=== PATIENT | female | born 1975 | race African-American/Black ===

== ENCOUNTER 2017-12-24 17:31 | Inpatient (IN) | payer SELFPAY ==
[~2017-12-24] VITALS: Ht 175.3 cm; Wt 59.0 kg
[2017-12-24] MEDS ORDERED: SODIUM CHLORIDE 0.9% 1,000 ML IV ONE (18:15)
[2017-12-24] MEDS ORDERED: ONDANSETRON HCL 4MG/2ML VIAL IV STA (18:15)
[2017-12-24] MEDS ORDERED: KETOROLAC 30MG/ML VIAL IV STA (18:15)
[2017-12-24 19:08] LABS: BASOPHILS % 0.5 % (0.0-2.0); EOSINOPHILS % 0.1 % (0.0-5.0); HEMATOCRIT. 40.9 % (36.0-48.0); HEMOGLOBIN. 13.3 g/dL (12.0-16.0); LYMPHOCYTES % 14.3 % (20.0-50.0); MEAN CORPUSCULAR HEMOGLOBIN 31.1 pg (28.0-32.0); MEAN CORPUSCULAR VOLUME 95.9 fL (81.0-99.0); MEAN PLATELET VOLUME 8.3 fl (7.4-10.4); MONOCYTES % 9.9 % (2.0-8.0); NEUTROPHILS % 75.2 % (40.0-76.0); PLATELET 274 x1000/uL (130-400); RED BLOOD CELL COUNT 4.27 mill/uL (4.2-5.4)
[2017-12-24 19:12] LABS: CHLORIDE 98 mEq/L (98-107)
[2017-12-24] MEDS ORDERED: MORPHINE SULFATE 4 MG/ML CPJ (NOT FOR IM USE) IV ONE (21:00)
[2017-12-24 23:45] VITALS: BP 111/71
[2017-12-25] VITALS: BP 111/71
[2017-12-25 04:00] VITALS: BP 188/89
[2017-12-25] MEDS ORDERED: DEXT 5%/0.45% NACL KCL 20MEQ/L 1,000 ML IV SCH (04:15)
[2017-12-25] MEDS: MORPHINE SULFATE 4 MG/ML CPJ (NOT FOR IM USE) IV PRN ×4 (04:21→23:24)
[2017-12-25] MEDS ORDERED: ESOM20CA PO (05:43)
[2017-12-25] MEDS: PANTOPRAZOLE SODIUM 40 MG/VIAL IV SCH (09:41)
[2017-12-25 12:59] LABS: CHLORIDE 103 mEq/L (98-107)
[2017-12-25 13:05] LABS: PHOSPHORUS 3.5 mg/dL (2.5-4.9)
[2017-12-25] MEDS: DEXT 5%/0.45% NACL KCL 20MEQ/L 1,000 ML IV SCH ×2 (13:23→21:34)
[2017-12-25 13:38] LABS: HCG SCREEN NEGATIVE
[2017-12-25 15:40] LABS: HEMATOCRIT. 42.5 % (36.0-48.0); HEMOGLOBIN. 13.6 g/dL (12.0-16.0); MEAN CORPUSCULAR HEMOGLOBIN 30.9 pg (28.0-32.0); MEAN CORPUSCULAR VOLUME 96.8 fL (81.0-99.0); MEAN PLATELET VOLUME 8.8 fl (7.4-10.4); PLATELET 268 x1000/uL (130-400); RED BLOOD CELL COUNT 4.38 mill/uL (4.2-5.4); RED CELL DISTRIBUTION WIDTH 16.2 % (11.6-14.6)
[2017-12-25] MEDS: ONDANSETRON HCL 4MG/2ML VIAL IV PRN ×2 (16:25→23:24)
[2017-12-25 17:52] LABS: PLATELET ESTIMATE NORMAL
[2017-12-25] MEDS ORDERED: ACETAMINOPHEN 650MG SUPP PR PRN (18:45)
[2017-12-25 19:48] LABS: HEMATOCRIT 44.6 % (36.0-48.0); HEMOGLOBIN 14.2 g/dL (12.0-16.0)
[2017-12-25 20:00] VITALS: BP 114/73
[2017-12-25] MEDS: ENOXAPARIN 40MG/0.4ML SYR SUBCUT SCH (21:36)
[2017-12-26] VITALS: BP 136/89
[2017-12-26 04:00] VITALS: BP 132/92
[2017-12-26] MEDS: DEXT 5%/0.45% NACL KCL 20MEQ/L 1,000 ML IV SCH ×3 (05:23→23:08)
[2017-12-26] MEDS: ONDANSETRON HCL 4MG/2ML VIAL IV PRN ×3 (05:24→19:54)
[2017-12-26] MEDS: MORPHINE SULFATE 4 MG/ML CPJ (NOT FOR IM USE) IV PRN ×3 (05:24→19:55)
[2017-12-26 07:50] LABS: CHLORIDE 101 mEq/L (98-107)
[2017-12-26 08:00] VITALS: BP 120/87
[2017-12-26 08:05] LABS: AMYLASE 168 IU/L (25-115)
[2017-12-26] MEDS: PANTOPRAZOLE SODIUM 40 MG/VIAL IV SCH (08:09)
[2017-12-26 11:04] LABS: HEMATOCRIT 38.6 % (36.0-48.0); HEMOGLOBIN 12.6 g/dL (12.0-16.0); MEAN CORPUSCULAR HEMOGLOBIN 31.3 pg (28.0-32.0); MEAN CORPUSCULAR VOLUME 95.9 fL (81.0-99.0); PLATELET 225 x1000/uL (130-400); RED BLOOD CELL COUNT 4.03 mill/uL (4.2-5.4); RED CELL DISTRIBUTION WIDTH 16.1 % (11.6-14.6)
[2017-12-26 12:00] VITALS: BP 124/84
[2017-12-26 16:00] VITALS: BP 112/72
[2017-12-26 19:14] LABS: CLARITY URINE CLEAR (CLEAR); COLOR URINE ORANGE (YELLOW); KETONES URINE NEGATIVE (NEGATIVE); LEUKOCYTE ESTERASE URINE NEGATIVE (NEGATIVE); NITRITE URINE NEGATIVE (NEGATIVE); OCCULT BLOOD URINE TRACE (NEGATIVE); PH URINE 6.5 (4.5-8.0); PROTEIN URINE NEGATIVE (NEGATIVE); SPECIFIC GRAVITY URINE 1.005 (1.005-1.030); UROBILINOGEN URINE 0.2 E.U./dL (0.2-1.0)
[2017-12-26 19:37] LABS: *AMPHETAMINES SCREEN URINE NEGATIVE (NEGATIVE)
[2017-12-26 19:38] LABS: *BARBITURATES SCREEN URINE NEGATIVE (NEGATIVE); *BENZODIAZEPINES SCREEN URINE NEGATIVE (NEGATIVE); *COCAINE SCREEN URINE NEGATIVE (NEGATIVE); METHADONE URINE SCREEN NEGATIVE (NEGATIVE); PHENCYCLIDINE URINE SCREEN NEGATIVE (NEGATIVE)
[2017-12-26 19:39] LABS: CANNABINOID URINE SCREEN NEGATIVE (NEGATIVE); OPIATES URINE SCREEN PRESUMTIVE POSITIVE (NEGATIVE)
[2017-12-26 20:00] VITALS: BP 114/72
[2017-12-26] MEDS: ENOXAPARIN 40MG/0.4ML SYR SUBCUT SCH (20:04)
[2017-12-27] VITALS: BP 115/78
[2017-12-27] MEDS: ONDANSETRON HCL 4MG/2ML VIAL IV PRN ×4 (03:21→22:19)
[2017-12-27] MEDS: MORPHINE SULFATE 4 MG/ML CPJ (NOT FOR IM USE) IV PRN ×4 (03:35→22:24)
[2017-12-27 04:00] VITALS: BP 113/74
[2017-12-27 07:04] LABS: HEMATOCRIT 33.6 % (36.0-48.0); HEMOGLOBIN 11.2 g/dL (12.0-16.0); MEAN CORPUSCULAR HEMOGLOBIN 31.5 pg (28.0-32.0); MEAN CORPUSCULAR VOLUME 94.2 fL (81.0-99.0); PLATELET 205 x1000/uL (130-400); RED BLOOD CELL COUNT 3.56 mill/uL (4.2-5.4); RED CELL DISTRIBUTION WIDTH 16.1 % (11.6-14.6)
[2017-12-27 08:00] VITALS: BP 117/82
[2017-12-27] MEDS: PANTOPRAZOLE SODIUM 40 MG/VIAL IV SCH (10:05)
[2017-12-27 11:00] LABS: CHLORIDE 104 mEq/L (98-107)
[2017-12-27 11:21] LABS: AMYLASE 54 IU/L (25-115)
[2017-12-27 12:00] VITALS: BP 125/79
[2017-12-27] MEDS: DEXT 5%/0.45% NACL KCL 20MEQ/L 1,000 ML IV SCH (15:25)
[2017-12-27 16:00] VITALS: BP 148/79
[2017-12-27 20:00] VITALS: BP 137/85
[2017-12-27 20:57] LABS: HEPATITIS B SURFACE ANTIGEN NEGATIVE
[2017-12-27] MEDS: ENOXAPARIN 40MG/0.4ML SYR SUBCUT SCH (20:59)
[2017-12-27 21:22] LABS: HEPATITIS B CORE AB IGM NEGATIVE
[2017-12-27 21:24] LABS: HEPATITIS A AB IGM NEGATIVE (NEGATIVE)
[2017-12-28] VITALS: BP 123/74
[2017-12-28] MEDS: DEXT 5%/0.45% NACL KCL 20MEQ/L 1,000 ML IV SCH (03:42)
[2017-12-28 04:00] VITALS: BP 126/90
[2017-12-28] MEDS: ONDANSETRON HCL 4MG/2ML VIAL IV PRN (04:30)
[2017-12-28] MEDS: MORPHINE SULFATE 4 MG/ML CPJ (NOT FOR IM USE) IV PRN ×2 (04:31→10:55)
[2017-12-28 07:11] LABS: HEMATOCRIT 33.5 % (36.0-48.0); HEMOGLOBIN 11.1 g/dL (12.0-16.0); MEAN CORPUSCULAR HEMOGLOBIN 31.6 pg (28.0-32.0); MEAN CORPUSCULAR VOLUME 95.2 fL (81.0-99.0); PLATELET 224 x1000/uL (130-400); RED BLOOD CELL COUNT 3.52 mill/uL (4.2-5.4); RED CELL DISTRIBUTION WIDTH 16.4 % (11.6-14.6)
[2017-12-28 07:21] LABS: CHLORIDE 105 mEq/L (98-107)
[2017-12-28 08:00] VITALS: BP 136/84
[2017-12-28] MEDS: PANTOPRAZOLE SODIUM 40 MG/VIAL IV SCH (08:35)
[2017-12-28 12:00] VITALS: BP 137/82
[2017-12-28 13:43] VITALS: BP 137/82
== END 2017-12-28 15:12 | disposition home or self-care (01) | DRG 282 ==
LOC: ER 17:31 → 6EST 20:56 → EDBEDREQTM 20:59 → EDBEDREQ 20:59 → ENRESERV 21:38
PROVIDERS: ADMIT Internal Medicine; ATTEND Internal Medicine
DX: K85.90 Acute pancreatitis without necrosis or infection, unspecified (principal); I48.91 Unspecified atrial fibrillation; K76.0 Fatty (change of) liver, not elsewhere classified; E87.1 Hypo-osmolality and hyponatremia; F17.210 Nicotine dependence, cigarettes, uncomplicated; E86.0 Dehydration; K21.9 Gastro-esophageal reflux disease without esophagitis; K76.89 Other specified diseases of liver; R73.9 Hyperglycemia, unspecified; K58.9 Irritable bowel syndrome, unspecified; Z91.19 Patient's noncompliance with other medical treatment and regimen; Z98.891 History of uterine scar from previous surgery
CPT/HCPCS: 36415; 71045; 74176; 76700; 76705; 80048; 80053; 80061; 80305; 81003; 82105; 82150; 82962; 83036; 83690; 83735; 84100; 84484; 84703; 85014; 85018; 85025; 85027; 86705; 86709; 86803; 87340; 93005; 96361; 96374; 96375; 99285; C9113; J1650; J1885; J2270; J2405; J7030; J7040